=== PATIENT | male | born 1980 | race Hispanic/Latino ===

== ENCOUNTER 2016-06-01 11:12 | Emergency (ER) | payer OTHER ==
[2016-06-01] MEDS ORDERED: LORazepam 2 MG/1 ML VIAL IVP ONE (11:38)
[2016-06-01] MEDS ORDERED: Sodium Chloride 0.9% 1,000 ML, Magnesium Sulfate 2gm (Premix) 50 ML with Multivitamin I... IV ONE ×5 (11:38)
[2016-06-01] MEDS ORDERED: Sodium Chloride 0.9% 1,000 ML with Multivitamin Inj 10 ML, Thiamine Inj 100 MG, Folic A... IV ONE ×5 (12:00)
[2016-06-01 12:04] LABS: HEMATOCRIT 43.2 % (42.0-52.0); HEMOGLOBIN 14.6 g/dL (14.0-18.0); MEAN CORPUSCULAR HEMOGLOBIN 30.4 PG (27-31); MEAN CORPUSCULAR HGB CONC 33.8 g/dL (33-37); MEAN CORPUSCULAR VOLUME 89.8 FL (80-90); MEAN PLATELET VOLUME 9.2 FL (7.4-12.2); RED BLOOD COUNT 4.81 10^6/uL (4.70-6.10)
[2016-06-01 12:06] LABS: AMPHETAMINE SCREEN NEGATIVE (NEG); CANNABINOID SCREEN,URINE NEGATIVE (NEG); COCAINE SCREEN NEGATIVE (NEG); METHADONE URINE SCREEN NEGATIVE (NEG); METHAMPHETAMINES SCREEN,URINE NEGATIVE (NEG); OPIATE SCREEN,URINE POSITIVE (NEG); URINE SAMPLE TYPE VOIDED SPECIMEN; URINE SPECIFIC GRAVITY - MAN 1.002
[2016-06-01 12:10] VITALS: RESP 16; TEMP 97.6
[2016-06-01 12:13] LABS: BLOOD UREA NITROGEN 26 mg/dL (7-22); CALCIUM 9.1 mg/dL (8.7-10.7); EST GLOMERULAR FILTRATION > 60 (>60 ml/min/1.73m(2)); SERUM ALBUMIN 4.3 g/dL (3.5-4.8)
[2016-06-01] MEDS ORDERED: NORMAL SALINE 10 ML SYRINGE FLUSH IVP PRN (12:30)
--- NOTE | 2016-06-01 12:44 | DI ---
RIGHT SHOULDER, 06/01/2016 11:58 AM: Clinical History: Right shoulder pain. Previous Exam: None at this facility. 3 views are submitted. There is no acute soft tissue, osseous, or joint abnormality. The visualized p ortions of the right lung are normal. Reading: Normal right shoulder exam.
--- NOTE | 2016-06-01 12:47 | DI ---
RIGHT KNEE, 06/01/2016 11:57 AM: Clinical History: Right knee pain. Previous Exam: None at this facility. 3 views are submitted. There is no acute soft tissue, osseous, or joint abnormality. Reading: Normal right knee exam.
--- NOTE | 2016-06-01 15:23 | PDOC ---
General Adult HPI - General Chief Complaint: Clear for Confinement/DUI Draw Stated Complaint: POSSIBLE DRUG WITHDRAWLS Date Seen by Provider: 06/01/16 Time Seen by Provider: 11:25 Source: POSITIVE: Patient, Police Exam Limitations: POSITIVE: No limitations Nurse's Notes Reviewed & Considered: Yes - History of Present Illness Initial Comment: The patient is a 35-year-old male. He is a prisoner at the snf and is brought to the emergency room by police officers. Patient was reportedly treated for narcotic overdose at [facility] with Narcan last night. He has since been incarcerated in snf here in [place]. He states he has a history of alcohol abuse and states he drinks 1-2 fifths of vodka daily. He states he also has a history of prescription narcotic abuse with oxycodone, fentanyl, morphine and Dilaudid. He states he gets these prescription narcotics from other people, although he does state that he has had some pain medications prescribed for him by a physician in [place] for chronic right shoulder and chronic knee pain. He also states he uses methamphetamine. He states he uses methamphetamine IV and also grinds up prescription narcotic pills and injects them intravenously. He states he has a history of hypertension which has in the past been treated with atenolol, although he has not taken this medication for quite some time. Police officers bring the patient to the emergency room because they are concerned about his blood pressure, which is 148/120 in the emergency room. They're also concerned that the patient may undergo withdrawal from either alcohol or narcotics. Patient states he feels anxious but he is not presently tremulous. He is alert and oriented. He does complain of pain to the medial aspect of his right knee, which she states he injured when a box of frozen food fell onto his knee a couple of months ago. He also complains of pain over the anterolateral aspect of his right shoulder and thinks he has been diagnosed in the past with a "rotator cuff injury"of the shoulder. He sustained a crush injury to his right wrist and has had fusion of his right wrist many years ago. He states he has a history of anxiety and depression Have you received a tetanus shot in the past 10 years?: Yes Body Location Affected: REPORTS: Upper Extremity (R) (Right shoulder), Lower Extremity (R) (Right knee), Other (Chronic alcohol and polysubstance abuse as above) Timing: REPORTS: Unknown Duration: Other (History of alcohol and polysubstance abuse for several years.) Severity: Moderate Quality: REPORTS: "Pain" (Right shoulder and right knee as above; see diagram) Context: REPORTS: Other. DENIES: None, Sitting, Standing, Activity, Emotional stress, Coughing, Recent Trauma, Recent Surgery, Sleep, Rest, Lifting, Turning, Bending, Fall, Near Fall Modifying Factors: improves with: Nothing Similar Symptoms Previously: Yes Recent Care Received: REPORTS: Recently Seen, Treated by MD (Treated for narcotic overdose at [facility] last night as above.) Any Prior Injuries Related to Current Complaint?: No - Patient Home Medications Home Medications: Home Medications Lisinopril 10 mg PO DAILY #30 tab 06/01/16 Lorazepam [Ativan] 1 mg PO Q6H PRN #20 tab 06/01/16 - Patient Allergies Allergies/Adverse Reactions: Allergies Allergy/AdvReac Type Severity Reaction Status Date / Time Blood pressure med AdvReac Intermediate RASH Uncoded 06/01/16 11:20 Past Medical History - heen HEENT History: Denies History Cardiovascular History: Hypertension Respiratory History: Denies History Gastrointestinal History: Denies History Genitourinary History: Denies History Endocrine History: Denies History Musculoskeletal History: Joint Pain, Other (please comment) Additional Musculoskeletal History: INJURY TO RIGHT HAND,WRIST, FOREARM 10 YEARS AGO WITH MULTIPLE SURGERIES. SAYS HE HAS A TORN ROTATOR CUFF AND IS HAVING PAIN RIGHT SHOULDER Neurological History: Denies History Blood Disorders: Denies History Psychiatric History: Depression, Anxiety Disorders, Substance Abuse History of Sexually Transmitted Diseases: No Male Reproductive History: Denies History Cancer History: Denies History In Past Year Been Physically Harmed or Verbally Threatened: No History of MDRO: No Tobacco Use: Current Every Day Smoker Alcohol Use: Heavy Type of alcohol normally used: Hard Liquor How much alcohol do you normally drink a day?: ONE FIFTH DAILY Substance Use Type: Opiate Pain Medication, Methamphetamines Previous Surgical History: Yes Type / Date of Surgery: 16 SURGERIES ON RIGHT HAND/FORARM/WRIST. REATTACHED LEFT FIFTH DIGIT Significant Family History: No pertinent family hx Past Medical History Reviewed: Reviewed - No Changes ROS - Limitations ROS Limitations: No Limitations Constitution: REPORTS: Other (Anxiety) Cardiovascular: REPORTS: Denies Cardiac Symptoms Respiratory: REPORTS: Denies Resp Symptoms Neurological: REPORTS: Denies Neuro Symptoms Gastrointestinal: REPORTS: Denies GI Symptoms Endocrine: REPORTS: Denies Symptoms Musculoskeletal: REPORTS: Other (Right shoulder and right knee pain, chronic) Genitourinary: REPORTS: Denies Symptoms Eyes: REPORTS: Denies Symptoms ENT: REPORTS: Denies Symptoms Skin: REPORTS: Denies Skin Symptoms Lympathic: REPORTS: Denies Lympathic Symptoms Immunologic: POSITIVE: Denies Symptoms Psychiatric: POSITIVE: Anxiety General Adult Exam - General Appearance General Appearance: POSITIVE: Alert, Cooperative, No Acute Distress, No Evidence of Trauma, Anxious - HEENT HEENT: POSITIVE: Head Inspection Nml, Eyes Inspection Nml, Ears Inspection Nml, Nose Inspection Nml, Oral/Dental Inspect. Nml, Pharynx Inspect. Nml, PERRL, EOMI - Pupils Pupil Size: 4 mm: Bilateral (PERRLA) - Neck Neck: POSITIVE: Normal Inspection, Thyroid Normal - Respiratory Respiratory: POSITIVE: No Respiratory Distress, Breath Sounds Normal, Chest Non- Tender - Cardiovascular Cardiovascular: POSITIVE: Regular Rate & Rhythm, No Murmur, No Gallop, PMI Normal Peripheral Pulses: Radial (R): 2+, Radial (L): 2+ - Abdomen Abdomen: Soft: (All Quadrants), Normal Bowel Sounds: (All Quadrants), Denies Tenderness: (All Quadrants), No Splenomegaly: (All Quadrants), No Hepatomegaly: (All Quadrants), No Guarding: (All Quadrants), No Rebound: (All Quadrants), No Palpable Pulse: (All Quadrants), No Palpabale Mass: (All Quadrants), No Distention: (All Quadrants), No Rigidity: (All Quadrants) - Back Back: POSITIVE: Normal Inspection - Skin Skin: POSITIVE: Normal Color, Warm, Dry, No Rash - Extremities Extremity: Non-Tender: (All Extremities), Normal ROM: (All Extremities), Normal Inspection: (All Extremities) Additional Extremities Details: Evaluation of right and left shoulder shows range of motion both actively and passively to be intact. Patient does complain of pain on Minerva testing over the medial aspect of the left knee, compatible with medial meniscal injury. Negative anterior and posterior drawer test. No effusion. No sensory motor or vascular deficits. Evaluation of the right shoulder shows range of motion of the intact but abduction does produce pain over the anterolateral aspect of the shoulder, roughly over the area of the rotator cuff insertion. No deformities. No sensory motor or vascular deficits. - Neurological / Psychological Neurological: POSITIVE: Oriented X3, executive advisor Normal As Tested, Motor Normal, Sensation Normal, 5, 6 Images - Complete Complete: 1 - Some pain on palpation 2 - Pain on palpation; positive Minerva's test for pain General Adult Progress - Results Reviewed by me Xrays/CTs/US Reviewed by me: Yes Discussed with Radiologist: Yes Radiology Findings: X-ray right shoulder and right knee normal Lab Results Reviewed: Yes (positive for opiates) Lab Results:: Laboratory Results 06/01/16 Range/Units 11:48 WBC 10.07 (4.8-10.8) 10^3/uL RBC 4.81 (4.70-6.10) 10^6/uL Hgb 14.6 (14.0-18.0) g/dL Hct 43.2 (42.0-52.0) % MCV 89.8 (80-90) FL MCH 30.4 (27-31) PG MCHC 33.8 (33-37) g/dL RDW Std Deviation 47.9 (39-50) fL RDW Coeff of Carmen 14.8 H (11.5-14.5) % Plt Count 256 (140-350) 10*3/uL MPV 9.2 (7.4-12.2) FL Sodium 137 (135-145) meq/L Potassium 4.3 (3.8-5.2) meq/L Chloride 99 (98-112) meq/L Carbon Dioxide 24 (23-33) meq/L Anion Gap 14 (5-20) BUN 26 H (7-22) mg/dL Creatinine 1.0 (0.70-1.50) mg/dL Estimated GFR > 60 (>60 ml/min/1.73m(2)) BUN/Creatinine Ratio 26.00 H (6-20) Glucose 82 (78-110) mg/dL Calculated Osmolality 287.0 (267-292) mOsm/kg Calcium 9.1 (8.7-10.7) mg/dL Total Bilirubin 0.6 (0.3-1.2) mg/dL AST 39 (21-57) IU/L ALT 52 (21-72) IU/L Alkaline Phosphatase 44 (38-126) IU/L Total Protein 7.6 (6.1-8.0) g/dL Albumin 4.3 (3.5-4.8) g/dL Globulin 3.3 (2.50-4.10) g/dL Albumin/Globulin Ratio 1.30 (1.3-2.0) mg/g Ur Collection Type Voided specimen U Specif Grav (Refrac) 1.002 Urine Opiates Screen Positive H (NEG) Ur Buprenorphine Negative (NEG) Ur Oxycodone Screen Negative (NEG) Urine Methadone Screen Negative (NEG) Ur Propoxyphene Screen Negative (NEG) Barbiturate Screen Negative (NEG) U Tricyclic Antidepress Negative (NEG) Phencyclidine Screen Negative (NEG) Amphetamines Screen Negative (NEG) U Methamphetamines Scrn Negative (NEG) Benzodiazepines Screen Negative (NEG) Cocaine Screen Negative (NEG) U Marijuana (THC) Screen Negative (NEG) Serum Alcohol 10 (0-10) mg/dL - Patient's Progress Pain Medication Addressed: POSITIVE: Not Applicable School/Work Release Addressed: POSITIVE: Yes (Patient medically cleared for incarceration) Re-Examine Time: 13:38 Re-Examine Comment: Patient given a banana bag of normal saline, Mejia casted 1 mg, thiamine 100 mg and magnesium sulfate 2 g IV. Patient was also given 2 mg of Ativan IV. Patient asymptomatic on discharge. Discharged with a prescription for lisinopril, 10 mg daily for his hypertension and 10 Ativan tablets to be given one every 6 hours as necessary for withdrawal symptoms. Status: POSITIVE: Improved, Re-Examined Antibiotics Given: No - Consult Consult (If Yes, Name of Consulting MD & Time Called): No Counseled: POSITIVE: Patient, RE: Lab Results, RE: Radiology Results, RE: DX, RE : Need for F/U, Other (Police) Patient Care Time - Estimated PCT Patient Care Time (In Minutes): 55 Vital Signs - Recent Vital Signs Vital Signs: Vital Signs (Last 8 hours) Temp Pulse Resp BP Pulse Ox 06/01/16 11:32 97.6 F 94 16 148/120 95 - VS Reviewed Vital Signs Reviewed: Yes Discharge Clinical Impression: Alcohol abuse, Drug abuse, Knee sprain, Shoulder injury, Hypertension Discharge Disposition: Discharged to Custody of Law Enforcement Condition: Fair Prescriptions / Orders: Lorazepam [Ativan] 1 mg PO Q6H PRN #20 tab PRN Reason: Withdrawal Symptoms Lisinopril 10 mg PO DAILY #30 tab Patient Instructions Given at Discharge: Knee Sprain (ED), Rotator Cuff Injury (ED), Abuse of Alcohol (ED), Chronic Hypertension (ED), Polysubstance Abuse (ED) Additional Instructions: Avoid illegal substances, including prescription medications. Avoid alcohol. He had been given a limited supply of Ativan for any narcotic or alcohol withdrawal symptoms, one every 6 hours as necessary. Lisinopril, one daily for high blood pressure. X-rays of your right knee and right shoulder are normal. Your chronic right knee and right shoulder pain is probably due to tendon or cartilage injury; follow-up with your primary care provider or orthopedist for these problems. Tylenol or Advil for discomfort. Return as necessary. Follow Up With: NONE,NONE [Primary Care Provider] - (Instructions as above. Return as necessary.) Date Decision to Transfer to Another Facility: 06/01/16 Time Decision to Transfer to Another Facility: 13:35
== END 2016-06-01 14:35 | disposition home or self-care (01) ==
LOC: ER 11:12
DX: S83.91XA Sprain of unspecified site of right knee, initial encounter (principal); F10.10 Alcohol abuse, uncomplicated; F19.10 Other psychoactive substance abuse, uncomplicated; M25.561 Pain in right knee; I10 Essential (primary) hypertension
CPT/HCPCS: 73030; 73562; 80053; 80305; 80320; 85027; 96365; 96366; 96375; 99283 ×2; J3475; J2060; J3411; J7030

== ENCOUNTER → 2016-06-27 | Outpatient (CLI) | payer OTHER ==
--- NOTE | 2016-06-27 15:12 | EKG ---
[address] [address] Measurements Intervals [place] Rate: 68 P: 60 AR: 159 QRS: 72 QRSD: 99 T: 29 QT: 381 QTc: 398 Interpretive Statements SINUS RHYTHM No previous ECG available for comparison Electronically Signed On 06-28-16 07:49:42 MDT by Jeramy Conte MD [id number]
--- NOTE | 2016-06-27 15:28 | DI ---
PA /LATERAL CHEST X-RAY, 06/27/2016 1:53 PM : Clinical History: Precordial chest pain. Previous Exam: None at this facility. There is no acute soft tissue or bony abnormality. Heart size is normal. Lungs are clear. Mediastinal structures are normal. There are no pulmonary nodules. Reading: Normal chest x-ray.
== END ==
LOC: MOB RAD 14:06 → MOB LAB 14:06
PROVIDERS: ATTEND Family Medicine
DX: R07.2 Precordial pain (principal); I10 Essential (primary) hypertension
CPT/HCPCS: 71020; 93005; 93010

== ENCOUNTER → 2016-07-25 | Outpatient (CLI) | payer OTHER ==
--- NOTE | 2016-07-25 08:51 | EKG ---
[address] [address] Measurements Intervals [place] Rate: 78 P: 66 [place]: 156 QRS: 80 QRSD: 98 T: 44 QT: 366 QTc: 399 Interpretive Statements SINUS RHYTHM Compared to ECG 06/27/2016 13:53:00 No significant changes Electronically Signed On 07-25-16 09:20:51 MDT by Woody Lester [id number]
== END ==
LOC: EKG 08:38
PROVIDERS: ATTEND Family Medicine
DX: R07.2 Precordial pain (principal); F41.9 Anxiety disorder, unspecified
CPT/HCPCS: 93005; 93010